=== PATIENT | male | born 1965 | race Hispanic/Latino ===

== ENCOUNTER 2018-03-13 13:15 | Emergency (ER) | payer BC ==
[~2018-03-13 13:15] MED LIST: ASPI-1197 PO; CARV6.25 PO; DULO60CA63 PO; FURO40TA5 PO; LEVO50TA11 PO; LISI-617 PO; PANT40TA25 PO
[2018-03-13] MEDS ORDERED: ASPIRIN 325 MG TABLET ONE (13:54)
[2018-03-13] MEDS ORDERED: NITROGLYCERIN 1GM/1 INCH PACKET TD ONE (13:55)
[2018-03-13 14:12] LABS: BASOPHILS % (AUTO) 0.5 % (0.0-5.0); EOSINOPHILS % (AUTO) 0.3 % (0.0-8.0); HEMATOCRIT 48.1 % (42-54); LYMPHOCYTES % (AUTO) 17.2 % (21.0-51.0); MEAN CORPUSCULAR HEMOGLOBIN 34.2 pg (27.0-33.0); MEAN CORPUSCULAR VOLUME 97.8 fL (79-99); MONOCYTES % (AUTO) 9.5 % (3.0-13.0); NEUTROPHILS % (AUTO) 72.5 % (40.0-77.0); PLATELET COUNT (AUTO) 186 K/uL (130-400); RED BLOOD CELL COUNT(AUTO) 4.92 MIL/uL (4.50-6.20); RED CELL DISTRIBUTION WIDTH 12.9 % (11.0-15.5); WHITE BLOOD COUNT (AUTO) 8.8 K/uL (4.8-10.8)
[2018-03-13 14:28] LABS: INR 1.03 (0.85-1.15); PARTIAL THROMBOPLASTIN TIME 29.3 SEC (26.3-35.5); PROTHROMBIN TIME 10.8 SEC (9.6-11.6)
[2018-03-13 14:46] LABS: B-TYPE NATRIURETIC PEPTIDE 22 pg/mL (0-100)
[2018-03-13 15:01] LABS: CREATININE 1.2 mg/dL (0.5-1.5); POTASSIUM 3.9 mmol/L (3.5-5.1)
[2018-03-13 15:04] LABS: ALBUMIN 3.8 g/dL (3.5-5.0); BILIRUBIN,TOTAL 1.2 mg/dL (0.2-1.0); TOTAL PROTEIN, SERUM 8.9 g/dL (6.0-8.3)
[2018-03-13] MEDS ORDERED: ONDANSETRON HCL 4 MG/2 ML VIAL ONE (16:12)
[2018-03-13] MEDS ORDERED: SODIUM CHLORIDE 0.9% 1000ML 1,000 ML IV ONE (16:12)
[2018-03-13] MEDS ORDERED: IOHEXOL 350 MG/ML 100ML INFUS..BTL IV ONE (16:22)
== END 2018-03-13 18:41 | disposition home or self-care (01) ==
LOC: EDH 13:15
DX: R07.89 Other chest pain (principal); I10 Essential (primary) hypertension; Z88.0 Allergy status to penicillin; Z72.0 Tobacco use
CPT/HCPCS: 36415; 71045; 71275; 80053; 82550; 83880; 84484 ×2; 85025; 85378; 85610; 85730; 93005 ×2; 94761; 96374; 99285; J2405; J7030; Q9967

== ENCOUNTER 2018-06-03 11:56 | Emergency (ER) | payer BC ==
[2018-06-03] MEDS ORDERED: ONDANSETRON HCL 4 MG/2 ML VIAL ONE (12:33)
[2018-06-03] MEDS ORDERED: DICYCLOMINE HCL 10 MG/ML 2ML AMP IM ONE (12:33)
[2018-06-03] MEDS ORDERED: SODIUM CHLORIDE 0.9% 1000ML 1,000 ML IV ONE (12:33)
[2018-06-03 13:41] LABS: BASOPHILS % (AUTO) 0.8 % (0.0-5.0); EOSINOPHILS % (AUTO) 0.4 % (0.0-8.0); HEMATOCRIT 49.9 % (42-54); LYMPHOCYTES % (AUTO) 20.9 % (21.0-51.0); MEAN CORPUSCULAR HEMOGLOBIN 33.7 pg (27.0-33.0); MEAN CORPUSCULAR HGB CONC 34.3 g/dL (32.0-36.0); MEAN CORPUSCULAR VOLUME 98.3 fL (79-99); MONOCYTES % (AUTO) 9.2 % (3.0-13.0); NEUTROPHILS % (AUTO) 68.7 % (40.0-77.0); NUCLEATED RED BLOOD CELLS 0.1 % (0.0-0.19); PLATELET COUNT (AUTO) 202 K/uL (130-400); RED BLOOD CELL COUNT(AUTO) 5.08 MIL/uL (4.50-6.20); RED CELL DISTRIBUTION WIDTH 13.7 % (11.0-15.5); WHITE BLOOD COUNT (AUTO) 10.1 K/uL (4.8-10.8)
[2018-06-03 14:44] LABS: ACETONE,BLOOD NEGATIVE (NEGATIVE); ALANINE AMINOTRANSFERASE 82 U/L (12-78); ALBUMIN 3.5 g/dL (3.5-5.0); ASPARTATE AMINOTRANSFERASE 164 U/L (10-37); BILIRUBIN,TOTAL 1.3 mg/dL (0.2-1.0); CARBON DIOXIDE 31 mmol/L (21-32); CHLORIDE 95 mmol/L (101-111); CREATININE 1.4 mg/dL (0.5-1.5); GLOMERULAR FILTR. RATE CALC 56 mL/min (>60); GLUCOSE,RANDOM 122 mg/dL (70-105); LIPASE 186 U/L (114-286); POTASSIUM 3.4 mmol/L (3.5-5.1); SODIUM SERUM 134 mmol/L (136-145); TOTAL PROTEIN, SERUM 8.3 g/dL (6.0-8.3); UREA NITROGEN, BLOOD 23 mg/dL (7-18)
== END 2018-06-03 15:05 | disposition home or self-care (01) ==
LOC: EDH 11:56
DX: K52.9 Noninfective gastroenteritis and colitis, unspecified (principal); R94.5 Abnormal results of liver function studies; I10 Essential (primary) hypertension; F41.9 Anxiety disorder, unspecified; E11.9 Type 2 diabetes mellitus without complications; E07.9 Disorder of thyroid, unspecified; Z72.0 Tobacco use; Z88.0 Allergy status to penicillin
CPT/HCPCS: 36415; 80053; 82009; 83690; 85025; 96361; 96372; 96374; 99285; J0500; J2405; J7030

== ENCOUNTER 2018-07-27 05:02 | Emergency (ER) | payer BC ==
[2018-07-27] MEDS ORDERED: SODIUM CHLORIDE 0.9% 1000ML 1,000 ML IV ONE (05:48)
[2018-07-27] MEDS ORDERED: MORPHINE SULFATE 2 MG/ML 1ML SYG ONE (05:48)
[2018-07-27] MEDS ORDERED: ONDANSETRON HCL 4 MG/2 ML VIAL ONE (05:48)
[2018-07-27 05:53] LABS: BASOPHILS % (AUTO) 1.1 % (0.0-5.0); BILIRUBIN,URINE Negative (NEGATIVE); COLOR,URINE Yellow (YELLOW); EOSINOPHILS % (AUTO) 0.7 % (0.0-8.0); GLUCOSE, URINE (UA) Negative (NEGATIVE); HEMATOCRIT 46.5 % (42-54); KETONES,URINE Trace mg/dL (NEGATIVE); LEUKOCYTE ESTERASE ,URINE Negative (NEGATIVE); MEAN CORPUSCULAR HEMOGLOBIN 34.6 pg (27.0-33.0); MEAN CORPUSCULAR HGB CONC 34.5 g/dL (32.0-36.0); MONOCYTES % (AUTO) 9.7 % (3.0-13.0); NEUTROPHILS % (AUTO) 68.5 % (40.0-77.0); NITRATE,URINE Negative (NEGATIVE); NUCLEATED RED BLOOD CELLS 0.1 % (0.0-0.19); OCCULT BLOOD,URINE Negative (NEGATIVE); PH,URINE 6.5 (5.0-8.0); PLATELET COUNT (AUTO) 256 K/uL (130-400); PROTEIN,URINE Trace (NEGATIVE); RED BLOOD CELL COUNT(AUTO) 4.65 MIL/uL (4.50-6.20); RED CELL DISTRIBUTION WIDTH 13.4 % (11.0-15.5); WHITE BLOOD COUNT (AUTO) 10.7 K/uL (4.8-10.8)
[2018-07-27 05:54] LABS: APPEARANCE,URINE CLEAR (CLEAR)
[2018-07-27 06:07] LABS: CREATININE 0.8 mg/dL (0.5-1.5); POTASSIUM 3.8 mmol/L (3.5-5.1)
[2018-07-27 06:12] LABS: ALBUMIN 3.7 g/dL (3.5-5.0); BILIRUBIN,TOTAL 0.3 mg/dL (0.2-1.0); TOTAL PROTEIN, SERUM 8.4 g/dL (6.0-8.3)
== END 2018-07-27 08:16 | disposition home or self-care (01) ==
LOC: EDH 05:02
DX: S70.01XA Contusion of right hip, initial encounter (principal); A09 Infectious gastroenteritis and colitis, unspecified; E86.0 Dehydration; F41.9 Anxiety disorder, unspecified; E11.9 Type 2 diabetes mellitus without complications; I10 Essential (primary) hypertension; E07.9 Disorder of thyroid, unspecified; Z72.0 Tobacco use; Z88.0 Allergy status to penicillin; W10.8XXA Fall (on) (from) other stairs and steps, initial encounter; Y93.89 Activity, other specified; Y92.89 Other specified places as the place of occurrence of the external cause; Y99.8 Other external cause status
CPT/HCPCS: 36415; 72170; 80053; 81003; 85025; 87804 ×2; 96361; 96374; 96375; 99285; J2405; J7030

== ENCOUNTER 2018-07-27 23:06 | Observation (INO) | payer BC ==
[2018-07-28 00:21] LABS: BASOPHILS % (AUTO) 1.1 % (0.0-5.0); EOSINOPHILS % (AUTO) 1.2 % (0.0-8.0); HEMATOCRIT 40.5 % (42-54); MEAN CORPUSCULAR HEMOGLOBIN 34.9 pg (27.0-33.0); MEAN CORPUSCULAR HGB CONC 34.9 g/dL (32.0-36.0); MONOCYTES % (AUTO) 10.9 % (3.0-13.0); NEUTROPHILS % (AUTO) 63.8 % (40.0-77.0); PLATELET COUNT (AUTO) 211 K/uL (130-400); RED BLOOD CELL COUNT(AUTO) 4.05 MIL/uL (4.50-6.20); RED CELL DISTRIBUTION WIDTH 13.1 % (11.0-15.5)
[2018-07-28 00:41] LABS: CREATININE 0.9 mg/dL (0.5-1.5); POTASSIUM 3.8 mmol/L (3.5-5.1)
[2018-07-28 00:43] LABS: INR 1.02 (0.85-1.15); PARTIAL THROMBOPLASTIN TIME 29.3 SEC (26.3-35.5); PROTHROMBIN TIME 10.7 SEC (9.6-11.6)
[2018-07-28] MEDS ORDERED: HYDRALAZINE HCL 20 MG/ML VIAL ONE (00:43)
[2018-07-28 00:55] LABS: ALBUMIN 3.4 g/dL (3.5-5.0); BILIRUBIN,TOTAL 0.8 mg/dL (0.2-1.0); TOTAL PROTEIN, SERUM 7.5 g/dL (6.0-8.3)
[2018-07-28 01:00] LABS: B-TYPE NATRIURETIC PEPTIDE 23 pg/mL (0-100)
[2018-07-28] MEDS ORDERED: IOHEXOL 350 MG/ML 100ML INFUS..BTL IV ONE (02:42)
[2018-07-28 02:52] LABS: ABG HCO3 26.1 mmol/L (21.0-28.0); ABG PCO2 39 mmHg (35-48)
[2018-07-28] MEDS ORDERED: SODIUM CHLORIDE 0.9% 1000ML 1,000 ML IV SCH (05:25)
[2018-07-28] MEDS ORDERED: ACETAMINOPHEN 325 MG TAB PO PRN ×2 (05:30)
[2018-07-28] MEDS ORDERED: DEXTROSE 50%-WATER 50 ML DISP.SYRIN IV PRN (05:30)
[2018-07-28] MEDS ORDERED: IPRATROPIUM/ALBUTEROL SULFATE 3 ML SOLUTION IH PRN (05:30)
[2018-07-28] MEDS ORDERED: HYDRALAZINE HCL 20 MG/ML VIAL IV PRN (05:30)
[2018-07-28] MEDS ORDERED: ONDANSETRON HCL 4 MG/2 ML VIAL IV PRN (05:30)
[2018-07-28] MEDS ORDERED: NITROGLYCERIN 0.4 MG SL TAB SL PRN (05:30)
[2018-07-28] MEDS ORDERED: GLUCAGON 1MG KIT 1 MG ML IM PRN (05:30)
[2018-07-28 05:57] LABS: HEMOGLOBIN A1C 6.9 % (4.0-6.0)
[2018-07-28 06:09] LABS: CHOLESTEROL 174 mg/dL (<200); CREATINE KINASE, TOTAL 396 U/L (21-232); HDL CHOLESTEROL 65 mg/dL (29-71); LDL DIRECT 95 mg/dL (0-99); MYOGLOBIN 80 ng/mL (10-92); TRIGLYCERIDES 125 mg/dL (30-200); TROPONIN I < 0.04 ng/mL (0.00-0.06)
[2018-07-28] MEDS ORDERED: INSULIN HUMULIN R 100 UNIT/ML 3ML SQ SCH (07:30)
[2018-07-28] MEDS ORDERED: FAMOTIDINE 20MG TAB 20 MG TAB PO SCH (09:00)
[2018-07-28] MEDS ORDERED: ENOXAPARIN SODIUM 40 MG/0.4 ML SYRINGE SQ SCH (09:00)
== END 2018-07-28 05:58 | disposition left against medical advice (07) ==
LOC: EDH 23:06 → EDHIP 07-28 05:18
PROVIDERS: ADMIT Internal Medicine; ATTEND Internal Medicine
DX: R06.02 Shortness of breath (principal); I10 Essential (primary) hypertension; E03.9 Hypothyroidism, unspecified; E11.9 Type 2 diabetes mellitus without complications; F41.9 Anxiety disorder, unspecified; Z88.0 Allergy status to penicillin
CPT/HCPCS: 36415; 36600; 71045; 71275; 80053; 80061; 82550 ×2; 82803; 83036; 83874; 83880; 84484 ×2; 85025; 85378; 85610; 85730; 93005 ×2; 99283; G0378; J0360; Q9967

== ENCOUNTER 2018-12-16 06:00 | Emergency (ER) | payer BC ==
[~2018-12-16 06:00] MED LIST changes: -DULO60CA63 PO; +DULO60CA64 PO
[2018-12-16] MEDS ORDERED: ONDANSETRON HCL 4 MG/2 ML VIAL ONE (06:21)
[2018-12-16] MEDS ORDERED: SODIUM CHLORIDE 0.9% 1000ML 1,000 ML IV ONE (06:22)
[2018-12-16 06:48] LABS: EOSINOPHILS % (AUTO) 0.9 % (0.0-8.0); LYMPHOCYTES % (AUTO) 35.8 % (21.0-51.0); MEAN CORPUSCULAR HGB CONC 34.6 g/dL (32.0-36.0); MEAN CORPUSCULAR VOLUME 101.2 fL (79-99); MONOCYTES % (AUTO) 9.8 % (3.0-13.0); NEUTROPHILS % (AUTO) 52.5 % (40.0-77.0); PLATELET COUNT (AUTO) 202 K/uL (130-400); RED BLOOD CELL COUNT(AUTO) 4.55 MIL/uL (4.50-6.20); RED CELL DISTRIBUTION WIDTH 13.1 % (11.0-15.5); WHITE BLOOD COUNT (AUTO) 6.4 K/uL (4.8-10.8)
[2018-12-16 06:58] LABS: CREATININE 0.9 mg/dL (0.5-1.5); POTASSIUM 3.8 mmol/L (3.5-5.1)
[2018-12-16 07:01] LABS: APPEARANCE,URINE Clear (CLEAR); BILIRUBIN,URINE Negative (NEGATIVE); COLOR,URINE Yellow (YELLOW); GLUCOSE, URINE (UA) Negative (NEGATIVE); KETONES,URINE Negative (NEGATIVE); LEUKOCYTE ESTERASE ,URINE Negative (NEGATIVE); NITRATE,URINE Negative (NEGATIVE); OCCULT BLOOD,URINE Negative (NEGATIVE); PROTEIN,URINE Negative (NEGATIVE); UROBILINOGEN,URINE 0.2 mg/dL (0.2-1.0)
[2018-12-16 07:04] LABS: ALBUMIN 3.8 g/dL (3.5-5.0); BILIRUBIN,TOTAL 0.2 mg/dL (0.2-1.0); TOTAL PROTEIN, SERUM 8.4 g/dL (6.0-8.3)
== END 2018-12-16 07:28 | disposition home or self-care (01) ==
LOC: EDH 06:00
DX: A09 Infectious gastroenteritis and colitis, unspecified (principal); E86.9 Volume depletion, unspecified; I10 Essential (primary) hypertension; E11.9 Type 2 diabetes mellitus without complications; K21.9 Gastro-esophageal reflux disease without esophagitis; F41.9 Anxiety disorder, unspecified; Z88.0 Allergy status to penicillin; Z72.0 Tobacco use
CPT/HCPCS: 36415; 80053; 81003; 85025; 96361; 96374; 99285; J2405; J7030

== ENCOUNTER 2019-02-14 14:54 | Emergency (ER) | payer BC ==
[2019-02-14 16:52] LABS: ALBUMIN 4.2 g/dL (3.5-5.0); BILIRUBIN,TOTAL 1.5 mg/dL (0.2-1.0); CREATININE 1.7 mg/dL (0.5-1.5); POTASSIUM 3.2 mmol/L (3.5-5.1); TOTAL PROTEIN, SERUM 8.9 g/dL (6.0-8.3)
[2019-02-14 16:57] LABS: BASOPHILS % (AUTO) 0.7 % (0.0-5.0); EOSINOPHILS % (AUTO) 0.3 % (0.0-8.0); HEMATOCRIT 46.9 % (42-54); LYMPHOCYTES % (AUTO) 15.8 % (21.0-51.0); MEAN CORPUSCULAR HGB CONC 35.6 g/dL (32.0-36.0); MEAN CORPUSCULAR VOLUME 98.4 fL (79-99); MONOCYTES % (AUTO) 8.2 % (3.0-13.0); PLATELET COUNT (AUTO) 198 K/uL (130-400); RED BLOOD CELL COUNT(AUTO) 4.77 MIL/uL (4.50-6.20); RED CELL DISTRIBUTION WIDTH 13.1 % (11.0-15.5); WHITE BLOOD COUNT (AUTO) 9.7 K/uL (4.8-10.8)
[2019-02-14 17:07] LABS: APPEARANCE,URINE SL CLOUDY (CLEAR); BILIRUBIN,URINE MODERATE (NEGATIVE); COLOR,URINE ORANGE (YELLOW); GLUCOSE, URINE (UA) NEGATIVE (NEGATIVE); KETONES,URINE 15 mg/dL (NEGATIVE); LEUKOCYTE ESTERASE ,URINE NEGATIVE (NEGATIVE); NITRATE,URINE POSITIVE (NEGATIVE); OCCULT BLOOD,URINE NEGATIVE (NEGATIVE); PH,URINE 5.5 (5.0-8.0); PROTEIN,URINE 100 mg/dL (NEGATIVE)
[2019-02-14 17:16] LABS: AMPHET/METH SCREEN,URINE NEGATIVE (NEGATIVE); BARBITURATE SCREEN, URINE NEGATIVE (NEGATIVE); BENZODIAZEPINES SCREEN,URINE NEGATIVE (NEGATIVE); CANNABINOID SCREEN,URINE NEGATIVE (NEGATIVE); COCAINE SCREEN,URINE NEGATIVE (NEGATIVE); OPIATE SCREEN,URINE NEGATIVE (NEGATIVE); PHENCYCLIDINE SCREEN,URINE NEGATIVE (NEGATIVE)
[2019-02-14 17:31] LABS: BACTERIA,URINE Few /HPF (None Seen); RBC,URINE 0-1 /HPF (0-1); WBC,URINE 0-1 /HPF (0-1)
[2019-02-14 17:32] LABS: HYALINE CASTS, URINE 0-1 /LPF (0-1 /LPF); MUCUS,URINE Few LPF (None Seen); SQUAMOUS EPITHELIAL CELL,UR Few /HPF (0-2)
[2019-02-14] MEDS ORDERED: SODIUM CHLORIDE 0.9% 1000ML 1,000 ML IV ONE ×2 (17:59→20:43)
[2019-02-14] MEDS ORDERED: POTASSIUM CHLORIDE 20 MEQ ERTAB PO ONE (19:50)
== END 2019-02-14 22:15 | disposition home or self-care (01) ==
LOC: EDH 14:54
DX: E87.6 Hypokalemia (principal); E87.1 Hypo-osmolality and hyponatremia; N28.9 Disorder of kidney and ureter, unspecified; R11.10 Vomiting, unspecified; R19.7 Diarrhea, unspecified; M54.16 Radiculopathy, lumbar region; F10.10 Alcohol abuse, uncomplicated; K21.9 Gastro-esophageal reflux disease without esophagitis; E11.9 Type 2 diabetes mellitus without complications; F41.9 Anxiety disorder, unspecified; I10 Essential (primary) hypertension; E07.9 Disorder of thyroid, unspecified; Z88.0 Allergy status to penicillin; Z72.0 Tobacco use
CPT/HCPCS: 36415; 80053; 80305; 81001; 82550; 83735; 85025; 87088; 93005; 96360; 96361; 99285; J7030 ×2

== ENCOUNTER 2019-06-18 02:17 | Emergency (ER) | payer BC | END 2019-06-18 02:36 | disposition home or self-care (01) | LOC: EDH 02:17 | DX: T63.2X1A Toxic effect of venom of scorpion, accidental (unintentional), initial encounter (principal); I10 Essential (primary) hypertension; E11.9 Type 2 diabetes mellitus without complications; F41.9 Anxiety disorder, unspecified; K21.9 Gastro-esophageal reflux disease without esophagitis; Z88.0 Allergy status to penicillin; Y92.89 Other specified places as the place of occurrence of the external cause | CPT/HCPCS: 99281 ==

== ENCOUNTER 2020-08-23 20:55 | Emergency (ER) | payer BC ==
[~2020-08-23 20:55] MED LIST changes: -LISI-617 PO; +LISI5TAB21 PO; -PANT40TA25 PO; +PANT40TA54 PO
[2020-12-13] MEDS ORDERED: DULA1.5P SQ (13:01)
[2020-12-13] MEDS ORDERED: LISI10TA24 PO (13:01)
[2020-12-13] MEDS ORDERED: ATOR10TA69 PO (13:01)
[2020-12-13] MEDS ORDERED: IBUP-2077 PO (13:01)
[2020-12-13] MEDS ORDERED: ACET-3194 PO (13:01)
[2020-12-18] MEDS ORDERED: FERR325T29 PO (12:37)
[2020-12-18] MEDS ORDERED: HYDR-4060 PO (12:37)
[2020-12-18] MEDS ORDERED: AEC81 PO (12:37)
== END 2020-08-24 00:05 | disposition home or self-care (01) ==
LOC: EDH 20:55
DX: M54.2 Cervicalgia (principal); K21.9 Gastro-esophageal reflux disease without esophagitis; E11.9 Type 2 diabetes mellitus without complications; F41.9 Anxiety disorder, unspecified; I10 Essential (primary) hypertension; Z88.0 Allergy status to penicillin
CPT/HCPCS: 99281

== ENCOUNTER 2024-08-12 22:38 | Emergency (ER) | payer BC, OTHER ==
[~2024-08-12] VITALS: Ht 170.2 cm; Wt 118.4 kg
[~2024-08-12 22:38] MED LIST changes: +AEC81 PO; -ASPI-1197 PO; +ATOR10TA69 PO; +DULA1.5P SQ; +FERR325T29 PO; -FURO40TA5 PO; +HYDR-4060 PO; +LISI10TA24 PO; -LISI5TAB21 PO; -PANT40TA54 PO
[2024-08-12] MEDS: acetaMINOPHEN 500 MG TABLET PO ONE (23:22)
[2024-08-12] MEDS: ketOROlac 15MG/ML VIAL (15MG/ML) IV ONE (23:22)
--- NOTE | 2024-08-13 01:08 | HMCIMG ---
FEMUR 2 VW LEFT HISTORY: Fall COMPARISON: None TECHNIQUE: 4 images of left femur were obtained. FINDINGS: The study is limited due to poor penetration. There is no acute displaced fracture or dislocation. Degenerative changes are seen. IMPRESSION: 1. Findings as described above.
--- NOTE | 2024-08-13 01:11 | HMCIMG ---
KNEE 3VWS RT HISTORY: Fall COMPARISON: None TECHNIQUE: Three images of right knee were obtained. FINDINGS: The study is limited due to poor penetration. There is no acute displaced fracture or dislocation. Degenerative changes are seen. IMPRESSION: 1. Findings as described above.
[2024-08-13] MEDS ORDERED: IBUP-2076 PO (01:34)
--- NOTE | 2024-08-13 01:34 | ERN ---
ED Note History of Present Illness Stated Complaint: R HIP PAIN S/P FALL Chief Complaint: Hip Pain/Injury Time Seen by MD: 22:39 Time Seen by Midlevel: 22:39 Dictation: The patient is a 59-year-old male with a history of diabetes hypertension who presents to the emergency department with complaints of a fall about an hour prior to arrival. Patient reports he was on a moving chair when he fell on his left side. Patient denies any head strike, nausea or vomiting, LOC. Patient's current complaint of left hip pain, left upper leg, right knee pain. Patient does report that he has been dealing with his left hip pain for about two weeks and has not an orthopedic who told him he had bone to bone and is trying to lose weight. Patient denies any urinary or fecal incontinence. Allergies: Coded Allergies: Penicillins (Verified Allergy, Unknown, 12/05/15) Home Meds Active Scripts Ibuprofen (Ibuprofen) 400 Mg Tablet, 1 TAB PO TID for pain or fever for 10 Days, #30 TAB 0 Refills Prov:MOLLY PRESSLEY HOSTEL MANAGER 08/13/24 Hydrocodone/Acetaminophen (Hydrocodon-Acetaminophen 5-325) 1 Each Tablet, 1-2 EACH PO Q6HPRN PRN for ACUTE POST-OP PAIN, #56 TAB 0 Refills Prov:ZAKIYA WESLEY MD 12/18/20 Ferrous Sulfate (Ferosul) 325 Mg Tablet, 325 MG PO DAILYBKFST for POST-OP ANEMIA, #30 TAB 0 Refills Prov:ZAKIYA WESLEY MD 12/18/20 Aspirin (ASPIRIN 81 MG ECTAB) 81 Mg Ectab, 81 MG PO BID for DVT PREVENTION, #60 TAB.EC 0 Refills Prov:ZAKIYA WESLEY MD 12/18/20 Reported Medications Dulaglutide (Trulicity) 1.5 Mg/0.5 Ml Pen.injctr, 1.5 MG SQ QWEEK 12/13/20 Atorvastatin Calcium (Atorvastatin Calcium) 10 Mg Tablet, 10 MG PO HS, TAB 12/13/20 Lisinopril (Lisinopril) 10 Mg Tablet, 10 MG PO DAILY, TAB 12/13/20 Levothyroxine Sodium (Levothyroxine Sodium) 50 Mcg Tablet, 50 MCG PO ACBKFST, #30 12/05/15 Carvedilol (Carvedilol) 6.25 Mg Tablet, 6.25 MG PO BID, #60 12/05/15 Duloxetine HCl (Duloxetine HCl) 60 Mg Capsule.dr, 60 MG PO NOON, #30 12/05/15 Past Medical History Past Medical History: Diabetes-Type II, High Cholesterol, Hypertension Surgical History: Unknown RN Note Reviewed/Agreed w/PFSH: Yes Review of System Dictation Constitutional: Negative for fever,chills, and weight loss Eyes: Negative for injury, pain,redness, and discharge ENT: Negative for injury,pain or swelling Cardiovascular: Negative for chest pain, palpitations, and edema Respiratory: Negative for shortness of breath, cough, and wheezing, Abdomen/GI: Negative for abdominal pain, nausea, vomiting, diarrhea, and constipation Back: Negative for injury and pain : Negative for injury, bleeding and discharge MS/Extremity: Negative for injury and deformity positive for left hip pain, right knee pain Skin: Negative for rash, and discoloration positive for right knee abrasion Neuro: Negative for headache, weakness, numbness, tingling, and seizure Psych: Negative for suicide ideation, homicidal ideation, and hallucinations Initial Vital Sign VS Vital Signs Date Time Temp Pulse Resp B/P (MAP) Pulse Ox O2 Delivery O2 Flow Rate FiO2 08/12/24 22:40 98.8 105 18 188/94 94 Room Air 0 08/12/24 23:27 21 Physical Exam Dictation Vital Signs reviewed General Appearance: Alert, oriented x 3, no acute distress, well developed, nourished. Head and Face: non-traumatic. Eyes: PERRL, pink conjunctivas, eyelid no trauma, anterior chamber with arcus senilis. Ears: Pinnas intact and no signs of trauma or erythema ear canals clear and no discharge TM no erythema Nose: No discharge, no bleeding. Oropharynx: Mouth normal, tongue pink. pharynx clear,no erythema, tonsils no exudates, no abscesses noted, mucous membrane moist Neck: Supple, non-tender, no thyromegaly, no masses, no JVD, no bruits Breast:Deferred Chest:No tenderness, no crepitus, no paradoxical movement, no retractions Lungs:Clear, well-ventilated, symmetric, no rales, no wheezing, no rhonchi, no stridor, good breath sounds bilaterally Heart: Regular rate, regular rhythm, no murmur, no gallops Vascular: no peripheral edema Abdomen: Soft, positive bowel sounds, nondistended, no guarding, nontender, no rebound, no masses no hepatomegaly, no splenomegaly, no Stacy's sign, no hernias. Rectal: Deferred Genital: Deferred Neurological: Normal speech, motor function intact, sensory function intact Musculoskeletal: Neck nontender, full range of motion, back nontender, full range of motion, Extremities: nontender, full range of motion Skin: Color pink, dry, no turgor, no rash, no lacerations, no contusions. Small2 cm abrasion to right knee, scant bleeding Lymphatic: Deferred Results (Laboratory/Radiology) Laboratory/Radiology REASON: fall, pain ORDERING PHYSICIAN: MOLLY PRESSLEY HOSTEL MANAGER PROCEDURE: FEM LT 2 - FEMUR 2 VW LEFT FEMUR 2 VW LEFT HISTORY: Fall COMPARISON: None TECHNIQUE: 4 images of left femur were obtained. FINDINGS: The study is limited due to poor penetration. There is no acute displaced fracture or dislocation. Degenerative changes are seen. IMPRESSION: 1. Findings as described above. REASON: fall, pain ORDERING PHYSICIAN: MOLLY PRESSLEY HOSTEL MANAGER PROCEDURE: KNEE 3V RT - KNEE 3VWS RT KNEE 3VWS RT HISTORY: Fall COMPARISON: None TECHNIQUE: Three images of right knee were obtained. FINDINGS: The study is limited due to poor penetration. There is no acute displaced fracture or dislocation. Degenerative changes are seen. IMPRESSION: 1. Findings as described above. Labs Reviewed?: Yes ED Course ED Course Orders Procedure Category Date Status Time Hip Unilat 2-3vw Left RAD 08/12/24 Taken 23:05 Knee 3vws Rt RAD 08/12/24 Resulted 23:05 Femur 2 Vw Left RAD 08/12/24 Resulted 23:05 Ketorolac PHA 08/12/24 Complete Tromethamine 15mg/Ml 23:30 Acetaminophen 500mg PHA 08/12/24 Complete Tab (Tylenol 500mg T 23:30 Wound Care (Er) CPOE 08/12/24 Transmitted 23:07 Current Medications Medications (Trade) Dose Ordered Sig/Homero Route PRN Reason Start Time Stop Time Status Last Admin Dose Admin Acetaminophen (TYLenol 500MG TAB) 1,000 mg ONCE ONCE PO 08/12/24 23:30 08/12/24 23:31 DC 08/12/24 23:22 Ketorolac Tromethamine (toRADol) 15 mg ONCE ONCE IV 08/12/24 23:30 08/12/24 23:31 DC 08/12/24 23:22 Vital Signs Date Time Temp Pulse Resp B/P (MAP) Pulse Ox O2 Delivery O2 Flow Rate FiO2 08/12/24 23:27 87 19 143/89 98 Room Air* 0 21 08/12/24 22:40 98.8 105 18 188/94 94 Room Air 0 Medical Decision Making MDM The patient is a 59-year-old male with a history of diabetes hypertension who presents to the emergency department with complaints of a fall about an hour prior to arrival. Patient reports he was on a moving chair when he fell on his left side. Patient denies any head strike, nausea or vomiting, LOC. Patient's current complaint of left hip pain, left upper leg, right knee pain. Patient does report that he has been dealing with his left hip pain for about two weeks and has not an orthopedic who told him he had bone to bone and is trying to lose weight. Patient denies any urinary or fecal incontinence. X-ray showed no acute fractures or dislocation. Patient in no acute distress. Informed to follow up with primary doctor in orthopedic. Differential diagnosis: Knee sprain, hip fracture, femur fracture, knee dislocation Need for hospitalization: Patient does not meet criteria for hospitalization. There are no social concerns with this patient. DX & DISP Disposition: Discharge Departure Impression: Primary Impression: Fall Additional Impressions: Left hip pain, Contusion of right knee Condition: Stable Scripts Ibuprofen (Ibuprofen) 400 Mg Tablet 1 TAB PO TID for pain or fever for 10 Days, #30 TAB 0 Refills Prov: MOLLY PRESSLEY HOSTEL MANAGER 08/13/24 Additional Instructions: Your x-rays showed no acute fractures or dislocations. Please continue to follow up with the your orthopedic for your left hip pain. Keep your wound clean and dry. You may apply Neosporin to wound. If any symptoms of infection develop like redness fever abnormal drainage please visit your primary doctor If symptoms worsen please return to ER. FOLLOW-UP WITH PRIMARY CARE PROVIDER IN 1 TO 2 DAYS. TAKE MEDICATIONS DIRECTED HERE IN THE EMERGENCY ROOM. OKAY TO CONTINUE HOME MEDICATIONS UNLESS OTHERWISE DISCUSSED DURING YOUR VISIT IN THE EMERGENCY ROOM TODAY. RETURN TO YOUR NEAREST EMERGENCY ROOM IF SYMPTOMS WORSEN OR IF THERE IS NO IMPROVEMENT. CALL 911 IF YOU NEED IMMEDIATE ASSISTANCE. TAKE TYLENOL OR MOTRIN [id number] NEEDED AND IF NO CONTRAINDICATIONS ARE PRESENT. INCREASE ORAL HYDRATION. A WOUND CULTURE OR URINE CULTURE WAS ORDERED HERE IN THE EMERGENCY ROOM DEPARTMENT PLEASE FOLLOW-UP WITH PRIMARY CARE PROVIDER AND ADVISE THEM TO GET REPEAT PORTS FROM OUR FACILITY. IF YOU HAD ANY NANDO WRAP/SPLINTS THAT WERE APPLIED HERE, PLEASE DO NOT REMOVE THEM UNTIL YOU SEE YOUR PRIMARY CARE OR SPECIALTY. Referrals: GILLIAN HAYES MD (PCP) Time of Disposition: 01:31 I have reviewed the case, and I agree with, Diagnosis and Plan MOLLY PRESSLEY HOSTEL MANAGER Aug 13, 2024 01:34
[2024-08-13 01:50] VITALS: BP 154/76; PULSE 76; RESP 20; TEMP 98.4; O2SAT 98
--- NOTE | 2024-08-13 07:36 | HMCIMG ---
HIP UNILAT 2-3VW LEFT CLINICAL HISTORY: fall, pain COMPARISON: 07/27/2018 TECHNIQUE: AP pelvis and 2 views of the left hip. images were obtained. FINDINGS: There is unchanged right total hip arthroplasty . There is no identified acute fracture subluxation dislocation. Soft tissues appear unremarkable. IMPRESSION: No acute findings.
== END 2024-08-13 01:20 | disposition home or self-care (01) ==
LOC: EDH 22:38
DX: S80.01XA Contusion of right knee, initial encounter (principal); M25.552 Pain in left hip; E11.9 Type 2 diabetes mellitus without complications; E78.00 Pure hypercholesterolemia, unspecified; I10 Essential (primary) hypertension; Z79.1 Long term (current) use of non-steroidal anti-inflammatories (NSAID); Z79.899 Other long term (current) drug therapy; Z88.0 Allergy status to penicillin; W18.39XA Other fall on same level, initial encounter; Y93.89 Activity, other specified; Y92.89 Other specified places as the place of occurrence of the external cause; Y99.8 Other external cause status
CPT/HCPCS: 99284; 96374; 73502; 73552; 73562; J1885

== ENCOUNTER 2024-08-29 10:30 | Emergency (ER) | payer BC ==
[~2024-08-29] VITALS: Ht 170.2 cm; Wt 113.4 kg
[~2024-08-29 10:30] MED LIST changes: +IBUP-2076 PO
--- NOTE | 2024-08-29 10:53 | ERN ---
ED Note History of Present Illness Stated Complaint: BACK PAIN Chief Complaint: Low Back Pain/Injury Time Seen by MD: 10:32 Time Seen by Midlevel: 10:32 Dictation: The Patient is a 59-year-old male with a history of hypertension, diabetes who presents to the emergency department with complaints of low back pain onset three days ago after falling off an office chair. Patient reports he injured his right knee as he fell. Denies any head trauma, LOC, use of blood thinners, nausea or vomiting. Denies any urinary or fecal incontinence. Patient's blood glucose was 60 with a EMS. Given 15 g of glucose. Per patient he has low appe tite since starting mounjaro that he was placed on for weight loss management and has not eating this morning. Allergies: Coded Allergies: Penicillins (Verified Allergy, Unknown, 12/05/15) Home Meds Active Scripts Lidocaine (Lidocaine) 4 % Adh..patch, 1 PATCH TP DAILY for 10 Days, #10 PATCH 0 Refills Prov:MOLLY PRESSLEY [employer] WORK[employer] 08/29/24 Cyclobenzaprine HCl (Flexeril) 10 Mg Tab, 10 MG PO TID for muscle sstiffness, #14 TAB 0 Refills Prov:MOLLY PRESSLEY [employer] WORK[employer] 08/29/24 Ibuprofen (Ibuprofen) 600 Mg Tablet, 600 MG PO Q6H PRN for PAIN, #10 TAB Prov:MOLLY PRESSLEY [employer] WORK[employer] 08/29/24 Ibuprofen (Ibuprofen) 400 Mg Tablet, 1 TAB PO TID for pain or fever for 10 Days, #30 TAB 0 Refills Prov:MOLLY PRESSLEY [employer] WORK[employer] 08/13/24 Hydrocodone/Acetaminophen (Hydrocodon-Acetaminophen 5-325) 1 Each Tablet, 1-2 EACH PO Q6HPRN PRN for ACUTE POST-OP PAIN, #56 TAB 0 Refills Prov:ZAKIYA WESLEY MD 12/18/20 Ferrous Sulfate (Ferosul) 325 Mg Tablet, 325 MG PO DAILYBKFST for POST-OP ANEMIA, #30 TAB 0 Refills Prov:ZAKIYA WESLEY MD 12/18/20 Aspirin (ASPIRIN 81 MG ECTAB) 81 Mg Ectab, 81 MG PO BID for DVT PREVENTION, #60 TAB.EC 0 Refills Prov:ZAKIYA WESLEY MD 12/18/20 Reported Medications Dulaglutide (Trulicity) 1.5 Mg/0.5 Ml Pen.injctr, 1.5 MG SQ QWEEK 12/13/20 Atorvastatin Calcium (Atorvastatin Calcium) 10 Mg Tablet, 10 MG PO HS, TAB 12/13/20 Lisinopril (Lisinopril) 10 Mg Tablet, 10 MG PO DAILY, TAB 12/13/20 Levothyroxine Sodium (Levothyroxine Sodium) 50 Mcg Tablet, 50 MCG PO ACBKFST, #30 12/05/15 Carvedilol (Carvedilol) 6.25 Mg Tablet, 6.25 MG PO BID, #60 12/05/15 Duloxetine HCl (Duloxetine HCl) 60 Mg Capsule.dr, 60 MG PO NOON, #30 12/05/15 Past Medical History Past Medical History: Diabetes-Type II, Gallstones, High Cholesterol, Hypertension Surgical History: Cholecystectomy, Other Surgical History Other: HIP RN Note Reviewed/Agreed w/PFSH: Yes Review of System Dictation Constitutional: Negative for fever,chills, and weight loss Eyes: Negative for injury, pain,redness, and discharge ENT: Negative for injury,pain or swelling Cardiovascular: Negative for chest pain, palpitations, and edema Respiratory: Negative for shortness of breath, cough, and wheezing, Abdomen/GI: Negative for abdominal pain, nausea, vomiting, diarrhea, and constipation Back: Negative for injury and pain : Negative for injury, bleeding and discharge MS/Extremity: Positive for low back pain Skin: Negative for rash, and discoloration Neuro: Negative for headache, weakness, numbness, tingling, and seizure Psych: Negative for suicide ideation, homicidal ideation, and hallucinations Initial Vital Sign VS Vital Signs Date Time Temp Pulse Resp B/P (MAP) Pulse Ox O2 Delivery O2 Flow Rate FiO2 08/29/24 10:32 98.4 99 16 138/90 97 Room Air 0 08/29/24 10:55 21 Physical Exam Dictation Vital Signs reviewed General Appearance: Alert, oriented x 3, no acute distress, well developed, nourished. Head and Face: non-traumatic. Eyes: PERRL, pink conjunctivas, eyelid no trauma, anterior chamber with arcus senilis. Ears: Pinnas intact and no signs of trauma or erythema ear canals clear and no discharge TM no erythema Nose: No discharge, no bleeding. Oropharynx: Mouth normal, tongue pink. pharynx clear,no erythema, tonsils no exudates, no abscesses noted, mucous membrane moist Neck: Supple, non-tender, no thyromegaly, no masses, no JVD, no bruits Breast:Deferred Chest:No tenderness, no crepitus, no paradoxical movement, no retractions Lungs:Clear, well-ventilated, symmetric, no rales, no wheezing, no rhonchi, no stridor, good breath sounds bilaterally Heart: Regular rate, regular rhythm, no murmur, no gallops Vascular: no peripheral edema, Abdomen: Soft, positive bowel sounds, nondistended, no guarding, nontender, no rebound, no masses no hepatomegaly, no splenomegaly, no Stacy's sign, no hernias. Rectal: Deferred Genital: Deferred Neurological: Normal speech, motor function intact, sensory function intact Musculoskeletal: Neck nontender, full range of motion, low back tenderness, full range of motion, Extremities: nontender, full range of motion Skin: Color pink, dry, no turgor, no rash, no lacerations, no abrasions, no contusions. Lymphatic: Deferred Results (Laboratory/Radiology) Laboratory/Radiology Laboratory Tests Test 08/29/24 11:23 08/29/24 12:57 Whole Blood Glucose 66 MG/DL (70-110) L 113 MG/DL (70-110) #H REASON: fall, pain ORDERING PHYSICIAN: MOLLY PRESSLEY [employer] PROCEDURE: LUMB 2 3VW - LUMBAR SPINE 2-3VWS LUMBAR SPINE 2-3VWS HISTORY: Status post fall COMPARISON: None FINDINGS: 3 images of lumbar spine were obtained. Disc space narrowing is seen at the L5-S1 level. Grade 1 anterolisthesis is seen at the L4-5 level. Vascular calcifications are seen. There are degenerative changes. There is straightening of normal lordotic curvature which may be related to muscle spasm or positioning. No loss of vertebral height is seen. No fracture or dislocation is seen. Degenerative changes are seen. IMPRESSION: 1. No fracture is seen. DJD. REASON: fall, pain ORDERING PHYSICIAN: MOLLY PRESSLEY [employer] WORK[employer] PROCEDURE: KNEE 3V RT - KNEE 3VWS RT KNEE 3VWS RT HISTORY: Status post fall COMPARISON: 08/12/2024 TECHNIQUE: Images of right knee were obtained. FINDINGS: Nonspecific periosteal reaction is seen involving the medial portion of the right proximal tibia. This is unchanged from previous study. There is no acute displaced fracture or dislocation. Degenerative changes are seen. IMPRESSION: 1. Findings as described above. Labs Reviewed?: Yes ED Course ED Course Orders Procedure Category Date Status Time Lumbar Spine 2-3vws RAD 08/29/24 Resulted 10:46 Knee 3vws Rt RAD 08/29/24 Resulted 10:46 Ketorolac 60mg/2ml PHA 08/29/24 Complete (Toradol 60mg/2ml) 11:00 Orphenadrine Citrate PHA 08/29/24 Complete (Norflex) 11:00 Triamcinolone Acet PHA 08/29/24 Complete 40mg/Ml 1ml (Kenalog 11:00 Bedside Glucose CPOE 08/29/24 Transmitted Fingerstick 10:46 Current Medications Medications (Trade) Dose Ordered Sig/Homero Route PRN Reason Start Time Stop Time Status Last Admin Dose Admin Ketorolac Tromethamine (toRADol 60MG/ 2ML) 60 mg ONCE ONCE IM 08/29/24 11:00 08/29/24 11:01 DC 08/29/24 11:26 Orphenadrine Citrate (Norflex) 60 mg ONCE ONCE IM 08/29/24 11:00 08/29/24 11:01 DC 08/29/24 11:26 Triamcinolone Acetonide (Kenalog 40) 40 mg ONCE ONCE IM 08/29/24 11:00 08/29/24 11:01 DC 08/29/24 11:26 Vital Signs Date Time Temp Pulse Resp B/P (MAP) Pulse Ox O2 Delivery O2 Flow Rate FiO2 08/29/24 14:30 97.5 83 18 132/80 98 Room Air* 0 21 08/29/24 13:00 97.2 85 18 135/85 97 Room Air* 0 21 08/29/24 10:55 97.2 91 20 138/90 97 Room Air* 0 21 08/29/24 10:32 98.4 99 16 138/90 97 Room Air 0 Medical Decision Making MDM The Patient is a 59-year-old male with a history of hypertension, diabetes who presents to the emergency department with complaints of low back pain onset three days ago after falling off an office chair. Patient reports he injured his right knee as he fell. Denies any head trauma, LOC, use of blood thinners, nausea or vomiting. Denies any urinary or fecal incontinence. Patient's blood glucose was 60 with a EMS. Given 15 g of glucose. Per patient he has low appetite since starting mounjaro that he was placed on for weight loss management and has not eating this morning. X-ray showed no acute fractures or dislocations. Patient with no urinary or fecal incontinence. Was giving meal in ER. Blood glucose at 135. Patient pain improved with medications. Patient instructed to follow up with his orthopedic. Differential diagnosis: Back strain, lumbar fracture, knee contusion Need for hospitalization: Patient does not meet criteria for hospitalization. There are no social concerns with this patient. DX & DISP Disposition: Discharge Departure Impression: Primary Impression: Fall Additional Impressions: Low back strain, Contusion of right knee Condition: Stable Scripts Lidocaine (Lidocaine) 4 % Adh..patch 1 PATCH TP DAILY for 10 Days, #10 PATCH 0 Refills Prov: MOLLY PRESSLEY 08/29/24 Cyclobenzaprine HCl (Flexeril) 10 Mg Tab 10 MG PO TID for muscle sstiffness, #14 TAB 0 Refills Prov: MOLLY PRESSLEY 08/29/24 Ibuprofen (Ibuprofen) 600 Mg Tablet 600 MG PO Q6H PRN for PAIN, #10 TAB Prov: MOLLY PRESSLEY 08/29/24 Referrals: GILLIAN HAYES MD (PCP) Time of Disposition: 13:07 I have reviewed the case, and I agree with, Diagnosis and Plan MOLLY PRESSLEY Aug 29, 2024 10:53 KEISHA MARTINO DO Aug 30, 2024 12:29
[2024-08-29] MEDS: ORPHENADRINE 60MG/2ML IM ONE (11:26)
[2024-08-29] MEDS: TRIAMCINOLONE ACETONIDE 40 MG/ML 1ML VIAL IM ONE (11:26)
[2024-08-29] MEDS: ketOROlac 60 MG VIAL (30MG/ML) IM ONE (11:26)
--- NOTE | 2024-08-29 12:26 | HMCIMG ---
LUMBAR SPINE 2-3VWS HISTORY: Status post fall COMPARISON: None FINDINGS: 3 images of lumbar spine were obtained. Disc space narrowing is seen at the L5-S1 level. Grade 1 anterolisthesis is seen at the L4-5 level. Vascular calcifications are seen. There are degenerative changes. There is straightening of normal lordotic curvature which may be related to muscle spasm or positioning. No loss of vertebral height is seen. No fracture or dislocation is seen. Degenerative changes are seen. IMPRESSION: 1. No fracture is seen. DJD.
--- NOTE | 2024-08-29 12:26 | HMCIMG ---
KNEE 3VWS RT HISTORY: Status post fall COMPARISON: 08/12/2024 TECHNIQUE: Images of right knee were obtained. FINDINGS: Nonspecific periosteal reaction is seen involving the medial portion of the right proximal tibia. This is unchanged from previous study. There is no acute displaced fracture or dislocation. Degenerative changes are seen. IMPRESSION: 1. Findings as described above.
[2024-08-29] MEDS ORDERED: IBUP-2070 PO (12:58)
[2024-08-29] MEDS ORDERED: CYCL10TA16 PO (12:58)
[2024-08-29] MEDS ORDERED: LIDO1ADH82 TP (12:58)
--- NOTE | 2024-08-29 14:15 | NUR ---
PT EXPRESSED HIS WORRY ABOUT HIS LOWER BACK ISSUE AND [facility] ACCORDING TO HIM "HE CANNOT STAND UP".PT WAS ABLE STAND WITH ME AND TRANSFER FROM WHEELCHAIR TO BAD STEADILY. INFORMED DUMPING MACHINE OPERATOR MOLLY,WHO TALED WITH PT.PT IS NOW AGREEING TO BE DISCHARGED.
[2024-08-29 14:30] VITALS: BP 132/80; PULSE 83; RESP 18; TEMP 97.5; O2SAT 98
--- NOTE | 2024-08-29 14:30 | NUR ---
PT CONFIRMED THAT HE WILL BE FOLLOWING UP WITH HIS PCP.ADVISED HIM THAT HE CAN RECEIVE HIS IMAGING RECORDS FROM MEDICAL RECORDS.
== END 2024-08-29 14:40 | disposition home or self-care (01) ==
LOC: EDH 10:30
DX: S39.012A Strain of muscle, fascia and tendon of lower back, initial encounter (principal); S80.01XA Contusion of right knee, initial encounter; E11.9 Type 2 diabetes mellitus without complications; E78.00 Pure hypercholesterolemia, unspecified; I10 Essential (primary) hypertension; Z79.1 Long term (current) use of non-steroidal anti-inflammatories (NSAID); Z79.899 Other long term (current) drug therapy; Z88.0 Allergy status to penicillin; Z90.49 Acquired absence of other specified parts of digestive tract; X58.XXXA Exposure to other specified factors, initial encounter; Y93.89 Activity, other specified; Y92.89 Other specified places as the place of occurrence of the external cause; Y99.8 Other external cause status
CPT/HCPCS: 99284; 82948 ×2; 73562; 72100; 96372 ×3; J1885; J3301; J2360

== ENCOUNTER 2024-12-05 05:31 | Emergency (ER) | payer BC ==
[~2024-12-05] VITALS: Ht 170.2 cm; Wt 104.8 kg
[~2024-12-05 05:31] MED LIST changes: +COMPOUND IV REFRIGERATED 1 EACH IVSOLN MISC SCH; +CYCL10TA16 PO; +IBUP-2070 PO; +LIDO1ADH82 TP
--- NOTE | 2024-12-05 05:44 | NUR ---
Cally jc in ED - 12/05/24 at 0545 by ELISA C/O DEPRESSION AND SI FOR PAST 4 DAYS. DENIES SI OR HI TO
--- NOTE | 2024-12-05 05:45 | NUR ---
ARRIVED TO ED C/O DEPRESSION, ANXIETY AND SI 4 DYAS AGO. DENIES ANY SI OR HI AT THIS TIME. PT ETOH. HAS APPOINTMENT WITH [facility] 12/08/24 BUT WAS NOT ABLE TO WAIT DUE TO FEELING WORST. PT VOICED DRINKING 2 24 OZ BEERS AND XANAX.
[2024-12-05 06:17] LABS: IMMATURE GRANULOCYTE ABSOLUTE 0.04 K/uL (0-1); NUCLEATED RED BLOOD CELLS 0.0 % (0.0-0.19); PLATELET COUNT (AUTO) 151 K/uL (130-400); RED BLOOD CELL COUNT(AUTO) 3.62 MIL/uL (4.50-6.20); RED CELL DISTRIBUTION WIDTH 11.9 % (11.0-15.5); WHITE BLOOD COUNT (AUTO) 8.7 K/uL (4.8-10.8)
[2024-12-05 06:24] LABS: CREATININE 0.4 mg/dL (0.5-1.3); GLOMERULAR FILTR. RATE CALC 125 mL/min (>90); GLUCOSE,RANDOM 72 mg/dL (70-105); SODIUM SERUM 125 mmol/L (136-145); UREA NITROGEN, BLOOD 4 mg/dL (7-18)
[2024-12-05 06:30] LABS: ALCOHOL, BLOOD 346 mg/dL (0-10)
[2024-12-05 08:12] LABS: AMPHET/METH SCREEN,URINE NEGATIVE (NEGATIVE); BARBITURATE SCREEN, URINE NEGATIVE (NEGATIVE); CANNABINOID SCREEN,URINE NEGATIVE (NEGATIVE); COCAINE SCREEN,URINE NEGATIVE (NEGATIVE)
--- NOTE | 2024-12-05 09:30 | NUR ---
PATIENT STATES HE DOES NOT HAVE ANY SUICIDAL THOUGHTS OR PLANS, PATIENT RESTING IN BED, CALL LIGHT IN REACH, WIRE ROLLER LUIS AT BEDSIDE SITTER
[2024-12-05] MEDS: 0.9%NACL 1000ML 1,000 ML IV ONE ×2 (09:32→09:33)
--- NOTE | 2024-12-05 11:50 | ERN ---
General Chief Complaint: Depression Stated Complaint: EMOTIONIAL, DESPRESSION, + ETOH Time Seen by MD: 07:09 Source: patient History of Present Illness Initial Comments Patient is a 59-year-old male coming in with psychiatric complaints. Per patient he has been having depression in the anxiety. Patient states that he was feeling suicidal so he came in for further evaluation. Allergies: Coded Allergies: Penicillins (Verified Allergy, Unknown, 12/05/15) Home Meds Active Scripts Lidocaine (Lidocaine) 4 % Adh..patch, 1 PATCH TP DAILY for 10 Days, #10 PATCH 0 Refills Prov:MOLLY PRESSLEY SETTLEMENT CLERK 08/29/24 Cyclobenzaprine HCl (Flexeril) 10 Mg Tab, 10 MG PO TID for muscle sstiffness, #14 TAB 0 Refills Prov:PRESSLEYMOLLY DUDLEY SETTLEMENT CLERK 08/29/24 Ibuprofen (Ibuprofen) 600 Mg Tablet, 600 MG PO Q6H PRN for PAIN, #10 TAB Prov:PRESSLEYMOLLY DUDLEY SETTLEMENT CLERK 08/29/24 Ibuprofen (Ibuprofen) 400 Mg Tablet, 1 TAB PO TID for pain or fever for 10 Days, #30 TAB 0 Refills Prov:PRESSLEY,MOLLY SETTLEMENT CLERK 08/13/24 Hydrocodone/Acetaminophen (Hydrocodon-Acetaminophen 5-325) 1 Each Tablet, 1-2 EACH PO Q6HPRN PRN for ACUTE POST-OP PAIN, #56 TAB 0 Refills Prov:ZAKIYA WESLEY MD 12/18/20 Ferrous Sulfate (Ferosul) 325 Mg Tablet, 325 MG PO DAILYBKFST for POST-OP ANEMIA, #30 TAB 0 Refills Prov:ZAKIYA WESLEY MD 12/18/20 Aspirin (ASPIRIN 81 MG ECTAB) 81 Mg Ectab, 81 MG PO BID for DVT PREVENTION, #60 TAB.EC 0 Refills Prov:ZAKIYA WESLEY MD 12/18/20 Reported Medications Dulaglutide (Trulicity) 1.5 Mg/0.5 Ml Pen.injctr, 1.5 MG SQ QWEEK 12/13/20 Atorvastatin Calcium (Atorvastatin Calcium) 10 Mg Tablet, 10 MG PO HS, TAB 12/13/20 Lisinopril (Lisinopril) 10 Mg Tablet, 10 MG PO DAILY, TAB 12/13/20 Levothyroxine Sodium (Levothyroxine Sodium) 50 Mcg Tablet, 50 MCG PO ACBKFST, #30 12/05/15 Carvedilol (Carvedilol) 6.25 Mg Tablet, 6.25 MG PO BID, #60 16 Duloxetine HCl (Duloxetine HCl) 60 Mg Capsule.dr, 60 MG PO NOON, #30 16 Past Medical History Past Medical History: Diabetes-Type II, Gallstones, High Cholesterol, Hypertension Past Surgical History: Cholecystectomy, Other Surgical History Other: HIP ROS Dictation CONSTITUTIONAL: No chills, no fever, weakness, no diaphoresis, malaise. HEAD/FACE: No signs of trauma. EENT: No eye pain, no blurred vision, no tearing, no double vision, no ear pain, no ear discharge, no nose pain, no nasal congestion, no throat pain, no throat swelling, no mouth pain. RESPIRATORY: No cough, no orthopnea, no SOB, no stridor, no wheezing. CARDIOVASCULAR: No chest pain, no edema, no palpitations, no syncope. GASTROINTESTINAL/ABDOMINAL: No abdominal pain, no constipation, no diarrhea, no nausea, no vomiting. GENITOURINARY: No abnormal discharge, no dysuria, no frequent urination, no hematuria. No complaints of pain in the genitals. MUSCULOSKELETAL: No back pain, no gout, no joint pain, no joint swelling, no muscle pain, no muscle stiffness, no neck pain. INTEGUMENTARY: No change in color, no change in hair/nails, no dryness, no lesion, no lumps, no rash. NEUROLOGICAL/PSYCH: No anxiety, not depressed, no emotional problem, no headache, no numbness, no pre-existing deficit, no history of seizures, no tremors, no weakness. HEMATOLOGIC/LYMPHATIC: Not anemic, no history of blood clots, no apparent bleeding, no bruising, glands not swollen. All Systems Negative, Except as Noted. Physical Exam Physical Exam Dictation VITAL SIGNS: Reviewed. GENERAL APPEARANCE: Alert, oriented x3, no acute distress, obese. HEAD AND FACE: Non-traumatic. EYES: PERRL, pink conjunctivas, eyelid no trauma, anterior chamber clear. EARS: Pinnas intact and no signs of trauma or erythema. Ear canals clear and no discharge. TMs no erythema. NOSE: No discharge, no bleeding. OROPHARYNX: Mouth normal, teeth no caries, tongue pink. Pharynx clear, no erythema. Tonsils no exudates, no abscesses noted. Mucous membrane moist. NECK: Supple, non-tender, no thyromegaly, no masses, no JVD, no bruits. BREAST: Deferred. CHEST: No tenderness, no crepitus, no paradoxical movement, no retractions. LUNGS: Clear, well-ventilated, symmetric, no rales, no wheezing, no rhonchi, no stridor, good breath sounds bilaterally. HEART: Regular rate, regular rhythm, no murmur, no gallops. VASCULAR: No peripheral edema. ABDOMEN: Soft, positive bowel sounds, nondistended, no guarding, nontender, no rebound, no masses no hepatomegaly, no splenomegaly, no Stacy's sign, no hernias. RECTAL: Deferred. GENITAL: Deferred. NEUROLOGICAL: Normal speech, gross motor function intact, gross sensory function intact. MUSCULOSKELETAL: Neck nontender, full range of motion, back nontender, full range of motion. EXTREMITIES: Nontender, full range of motion. SKIN: Color pink, dry, no turgor, no rash, no lacerations, no abrasions, no contusions. LYMPHATICS: Deferred. Results Laboratory and Microbiology Lab and Micro Result Laboratory Tests Test 12/05/24 06:08 12/05/24 07:40 12/05/24 11:10 12/05/24 16:45 White Blood Count 8.7 K/uL (4.8-10.8) Red Blood Count 3.62 MIL/uL (4.50-6.20) L Hemoglobin 12.4 g/dL (14.0-18.0) L Hematocrit 34.4 % (42-54) L Mean Corpuscular Volume 95.0 fL (79-99) Mean Corpuscular Hemoglobin 34.3 pg (27.0-33.0) H Mean Corpuscular Hemoglobin Concent 36.0 g/dL (32.0-36.0) Red Cell Distribution Width 11.9 % (11.0-15.5) Platelet Count 151 K/uL (130-400) Mean Platelet Volume 8.8 fL (7.5-10.5) Immature Granulocyte % (Auto) 0.5 % (0-1) Neutrophils (%) (Auto) 56.9 % (40.0-77.0) Lymphocytes (%) (Auto) 29.9 % (21.0-51.0) Monocytes (%) (Auto) 11.8 % (3.0-13.0) Eosinophils (%) (Auto) 0.6 % (0.0-8.0) Basophils (%) (Auto) 0.3 % (0.0-5.0) Neutrophils # (Auto) 5.0 K/uL (1.8-7.7) Lymphocytes # (Auto) 2.6 K/uL (1.0-4.8) Monocytes # (Auto) 1.0 K/uL (0.1-1.0) Eosinophils # (Auto) 0.05 K/uL (0.00-0.70) Basophils # (Auto) 0.03 K/uL (0.00-0.20) Absolute Immature Granulocyte (auto 0.04 K/uL (0-1) Nucleated Red Blood Cells 0.0 % (0.0-0.19) Sodium Level 125 mmol/L (136-145) L 136 mmol/L (136-145) Potassium Level 4.8 mmol/L (3.5-5.1) 3.5 mmol/L (3.5-5.1) Chloride Level 90 mmol/L (101-111) *L 99 mmol/L (101-111) L Carbon Dioxide Level 21 mmol/L (21-32) 24 mmol/L (21-32) Blood Urea Nitrogen 4 mg/dL (7-18) L 3 mg/dL (7-18) L Creatinine 0.4 mg/dL (0.5-1.3) L 0.5 mg/dL (0.5-1.3) Glomerular Filtration Rate Calc 125 mL/min (>90) 117 mL/min (>90) Random Glucose 72 mg/dL (70-105) 104 mg/dL (70-105) Total Calcium 8.1 mg/dL (8.5-10.1) L 8.1 mg/dL (8.5-10.1) L Salicylates Level 4.6 mg/dL (2.8-20.0) Acetaminophen Level < 1 mcg/mL (10-29) L Serum Alcohol 346 mg/dL (0-10) H 228 mg/dL (0-10) H 96 mg/dL (0-10) H Urine Opiates Screen NEGATIVE (NEGATIVE) Urine Barbiturates Screen NEGATIVE (NEGATIVE) Urine Phencyclidine Screen NEGATIVE (NEGATIVE) Urine Amphetamines Screen NEGATIVE (NEGATIVE) Urine Benzodiazepines Screen NEGATIVE (NEGATIVE) Urine Cocaine Screen NEGATIVE (NEGATIVE) Urine Marijuana (THC) Screen NEGATIVE (NEGATIVE) Labs Reviewed?: Yes MDM MDM: Differential diagnosis: Anxiety, alcohol induced depressive state, suicidal ideations, Rationale: Tests considered and ordered secondary to shared decision making include: labs, ECG and radiology Previous outside records reviewed: Old ER visits. Risk of complication and/or morbidity or mortality of patient management: None Medications-Per medication reconciliation Need for hospitalization: Patient does meet criteria for hospitalization. Need for emergency major/minor surgery: No There are no social concerns with this patient. Prescription drug management Prescriptions will include symptomatic care Patient's prior external medical records from other ER visits were reviewed by me as indicated. Prior testing and results from previous visits were reviewed. Prior tests were taken into account with medical decision making and resource utilization, independent historian/historians were used to obtain complete medical history. I independently interpreted the test that were performed, results were reviewed by me and considered findings on radiology if ordered. Medical management and examination interpretation discussions were had by me with other qualified healthcare professionals as indicated for the patient's care. ED Course Orders Procedure Category Date Status Time Drug Screen Urine LAB 12/05/24 Complete 05:54 Vital Signs Per CPOE 12/05/24 Transmitted Routine 05:54 Cardiac Monitoring CPOE 12/05/24 Transmitted 05:54 Pulse Ox(Continuous) RT 12/05/24 Transmitted 05:54 Bedside Glucose CPOE 12/05/24 Transmitted Fingerstick 05:54 Suicide Precautions CPOE 12/05/24 Transmitted 05:54 Cath If Unable To CPOE 12/05/24 Transmitted Void In 6hr 05:54 Saline Lock Iv CPOE 12/05/24 Transmitted 05:54 Cbc With Differential LAB 12/05/24 Complete 05:54 Alcohol, Blood LAB 12/05/24 Complete 05:54 Salicylate LAB 12/05/24 Complete 05:54 Acetaminophen LAB 12/05/24 Complete 05:54 Basic Metabolic Panel LAB 12/05/24 Complete 05:54 0.9%Nacl 1000ml (Ns PHA 12/05/24 Complete 1000ml) 09:00 0.9%Nacl 1000ml (Ns PHA 12/05/24 Complete 1000ml) 09:30 Regular DIET 12/05/24 Transmitted Lunch Alcohol, Blood LAB 12/05/24 Complete 10:56 M.V.I. Iv [Adult] PHA 12/05/24 Complete (M.V.I. Iv [Adult])... 11:40 Compound Iv PHA 12/05/24 In Process Refrigerated 00:00 Alcohol, Blood LAB 12/05/24 Complete 17:00 Basic Metabolic Panel LAB 12/05/24 Complete 17:45 Alprazolam 0.5mg PHA 12/05/24 In Process (Xanax 0.5mg) 21:30 Current Medications Medications (Trade) Dose Ordered Sig/Homero Route PRN Reason Start Time Stop Time Status Last Admin Dose Admin Alprazolam (XANax 0.5MG) 0.5 mg ONCE ONCE PO 12/05/24 21:30 12/05/24 21:31 12/05/24 21:07 Multivitamins/ Minerals 10 ml/ Folic Acid 1 mg/ Thiamine HCl 100 mg/Sodium Chloride 1,010 ml @ 0 mls/hr DAILY STAT IV 12/05/24 11:40 12/05/24 11:43 DC 12/05/24 12:24 Sodium Chloride 1,000 ml @ 0 mls/hr ONCE ONCE IV 12/05/24 09:30 12/05/24 09:31 DC Sodium Chloride 1,000 ml @ 0 mls/hr Q0M ONCE IV 12/05/24 09:00 12/05/24 09:01 DC 12/05/24 09:33 Vital Signs Date Time Temp Pulse Resp B/P (MAP) Pulse Ox O2 Delivery O2 Flow Rate FiO2 12/05/24 20:42 98.1 107 18 166/95 98 Room Air* 0 12/05/24 19:26 107 18 166/85 97 Room Air* 0 12/05/24 17:32 98.1 105 18 151/93 97 Room Air* 0 12/05/24 14:04 97.5 108 17 129/80 98 Room Air* 0 12/05/24 11:32 98.2 104 17 139/89 97 Room Air* 0 12/05/24 08:00 97.7 96 18 165/93 96 Room Air* 0 12/05/24 05:50 98.1 90 20 147/70 99 Room Air* 0 21 12/05/24 05:38 98.1 80 18 127/72 98 Room Air 0 7:00 p.m. patient was signed out to me by a.m. physician. This is a 59-year-old male who came into the emergency room with complaints of feeling depressed, emotional and tearful. Apparently drank quite heavily and mixed beer with his antidepressant and his sister brought him in encouraged him to go to inpatient rehab. He does not have any plan to kill himself but felt extremely blue with suicidal ideations 4 days ago. He usually works from home for [employer] and has easy access to alcohol. Temperature 98 pulse 80 respirations 18 blood pressure 127/72 with a pulse oximetry of 98% on room air His initial alcohol level was 346 and follow up after a few hours is 228. Very alert awake oriented x4 speech is fluent, ambulating without any ataxia. His other medical problems include diabetes mellitus, hypertension and hypercholesterolemia Reviewed labs. UDS is negative Patient received IV fluids, banana bag and electrolyte repletion. Behavioral health screener from [facility] came and evaluated the patient extensively and cleared the patient for discharge to home stating he did not meet the criteria for inpatient admission and stabilization. She indicated that they would call the patient tomorrow and patient has a health outpatient appointment on December 08 2024 Patient has been updated on all the labs and available information and he is very motivated not to drink anymore and he does have alprazolam, buspirone and antidepressant at home. He basically indicated that he feels much better and is ready to go home DX & DISP Disposition: Discharge Departure Impression: Primary Impression: Psychiatric illness Additional Impressions: Alcohol abuse, Suicidal ideation, Depression with anxiety Condition: Stable Additional Instructions: Patient and the caregiver have been informed of all the diagnostic tests and the imaging conducted during the today's visit to the emergency room and has verbalized understanding of the results I have personally reviewed and interpreted all diagnostic exams performed here in the ER today as well as the vital signs documented by the nursing staff. The patient is now being discharged to home and should follow up with the primary care physician or the specialist as directed by the ER staff. Follow-up with primary care provider in 1 to 2 days. Take medications as directed here in the emergency room. Okay to continue home medications unless otherwise discussed during your visit in the emergency room today. Return to your nearest emergency room if symptoms worsen or if there is no improvement. Call 911 if you need immediate assistance. Take Tylenol or Motrin [id number] as needed and if no contraindications are present. Increase oral hydration. A wound culture or urine culture was ordered here in the emergency room department please follow-up with primary care provider and advise them to get repeat ports from our facility. If you had any Bernabe wrap/splints that were applied here, please do not remove them until you see your primary care or specialty. [facility]24 Referrals: GILLIAN HAYES MD (PCP) ISAAC LANE MD Dec 05, 2024 11:50 SUBHASH TEJEDA MD Dec 05, 2024 21:16
[2024-12-05] MEDS: M.V.I. IV [ADULT] 10 ML, FOLic ACID 5 MG/ML VIAL 1 MG, THIAMINE HCL 100 MG in 0.9%NACL ... IV STA (12:24)
--- NOTE | 2024-12-05 17:22 | NUR ---
SPOKE TO LU WITH [facility] HOTLINE, SHE WILL NOTIFY [employer]TL MANAGERTEACHER ADULT EDUCATION TO COME DIVYA ESPINOSA
[2024-12-05 18:09] LABS: CREATININE 0.5 mg/dL (0.5-1.3); GLOMERULAR FILTR. RATE CALC 117.0 mL/min (>90); GLUCOSE,RANDOM 104.0 mg/dL (70-105); SODIUM SERUM 136.0 mmol/L (136-145); UREA NITROGEN, BLOOD 3.0 mg/dL (7-18)
--- NOTE | 2024-12-05 18:17 | NUR ---
MCKINLEY PELLETIER, AT BEDSIDE WITH PT.
--- NOTE | 2024-12-05 19:06 | NUR ---
TROPICAL SCREENER AT BEDSIDE.
--- NOTE | 2024-12-05 19:11 | NUR ---
REPORT GIVEN TO GILLIAN ERVIN
--- NOTE | 2024-12-05 20:06 | NUR ---
PER TROPICAL SCREENER, PT IS OK TO GO HOME. TROPICAL SCREENER STATES THEY WILL FOLLOW UP WITH PATIENT TOMORROW AT HOME.
[2024-12-05 20:42] VITALS: BP 166/95; PULSE 107; RESP 18; TEMP 98.1; O2SAT 98
== END 2024-12-05 21:42 | disposition home or self-care (01) ==
LOC: EDH 05:31
DX: F99 Mental disorder, not otherwise specified (principal); F10.10 Alcohol abuse, uncomplicated; R45.851 Suicidal ideations; F41.9 Anxiety disorder, unspecified; E11.9 Type 2 diabetes mellitus without complications; E78.00 Pure hypercholesterolemia, unspecified; I10 Essential (primary) hypertension; Z79.1 Long term (current) use of non-steroidal anti-inflammatories (NSAID); Z79.899 Other long term (current) drug therapy; Z88.0 Allergy status to penicillin; Z90.49 Acquired absence of other specified parts of digestive tract
CPT/HCPCS: 99284; 96365; 80048 ×2; 80305; 85025; 36415; G0481; J7030; J3411; J3490